=== PATIENT | female | born 1995 | race American Indian/Alaskan Native ===

== ENCOUNTER 2017-04-25 22:22 | Emergency (ER) | payer SELFPAY ==
[2017-04-25] MEDS ORDERED: Levalbuterol HCl 1.25 MG/0.5 ML Neb NEB ONE (22:42)
[2017-04-25] MEDS ORDERED: methylPREDNISolone Sodium Succinate 125 MG/2 ML SDV IM ONE (23:05)
--- NOTE | 2017-04-25 23:41 | EDM.PDOC ---
ED HPI GENERAL MEDICAL PROBLEM - General Chief Complaint: Respiratory Problem Stated Complaint: Asthma exacerbation Time Seen by Provider: 04/25/17 22:23 Source of Information: Reports: Patient, Family, RN, RN Notes Reviewed History Limitations: Reports: No Limitations - History of Present Illness INITIAL COMMENTS - FREE TEXT/NARRATIVE: Patient presents the emergency room at [facility] complaining of shortness of breath and audible wheezing. The patient states she has a long-standing history of asthma. The patient states she ran out of her nebulizer for her asthma. She is not sure the last time she has had a treatment. The patient has not had any formal workup for her asthma. The patient does not have a primary care provider. The patient smokes cigarettes on a daily basis. The patient denies any focal neurological deficit. Patient denies any nausea vomiting or diarrhea. The patient does not have a cough. The patient states it hurts to take in a deep breath. The patient feels as if she cannot take in a deep breath. Otherwise no other complaints. Onset: Today - Related Data Allergies Allergy/AdvReac Type Severity Reaction Status Date / Time No Known Allergies Allergy Verified 04/25/17 22:33 Home Meds: Home Meds Albuterol Sulfate 2.5 mg IH ASDIRECTED 04/25/17 [History] Albuterol [IJP: Albuterol] 1 ampule INH Q4HR PRN #1 box 04/25/17 [Rx] Past Medical History Respiratory History: Reports: Asthma - Past Surgical History HEENT Surgical History: Reports: Other (See Below) Other HEENT Surgeries/Procedures: dental surgery Social & Family History - Tobacco Use Smoking Status *Q: Current Every Day Smoker Years of Tobacco use: 10 Packs/Tins Daily: 0.7 ED ROS GENERAL - Review of Systems Review Of Systems: See Below Constitutional: Denies: Fever, Chills, Weakness Respiratory: Reports: Shortness of Breath, Wheezing. Denies: Cough Cardiovascular: Denies: Chest Pain, Palpitations GI/Abdominal: Denies: Abdominal Pain, Nausea, Vomiting Skin: Reports: No Symptoms Neurological: Reports: No Symptoms ED EXAM, GENERAL - Physical Exam Exam: See Below Exam Limited By: No Limitations General Appearance: Alert, No Apparent Distress Respiratory/Chest: Decreased Breath Sounds, Wheezing Cardiovascular: Normal Peripheral Pulses, Regular Rate, Rhythm Peripheral Pulses: 2+: Radial (L), Radial (R) GI/Abdominal: Normal Bowel Sounds, Soft, Non-Tender Neurological: Alert, Oriented Skin Exam: Warm, Dry, Intact, Normal Color Course - Vital Signs Last Recorded V/S: Last Vital Signs Temp 37.2 C 04/25/17 22:31 Pulse 105 H 04/25/17 22:31 Resp 18 04/25/17 22:31 BP 156/79 H 04/25/17 22:31 Pulse Ox 98 04/25/17 22:31 - Orders/Labs/Meds Orders: Active Orders 24 hr Category Date Time Status RT Aerosol Therapy [RC] ASDIRECTED Care 04/25/17 22:42 Active Chest 2V [CR] Stat Exams 04/25/17 22:39 Taken Labs: Laboratory Tests 04/25/17 04/25/17 Range/Units 22:47 22:47 Urine Color Yellow (YELLOW) Urine Appearance Slightly cloudy H (CLEAR) Urine pH 7.5 (5.0-8.0) Ur Specific Wendell 1.020 Urine Protein Negative (NEGATIVE) mg/dL Urine Glucose (UA) Negative (NEGATIVE) mg/dL Urine Ketones Negative (NEGATIVE) mg/dL Urine Occult Blood Negative (NEGATIVE) Urine Nitrite Negative (NEGATIVE) Urine Bilirubin Negative (NEGATIVE) Urine Urobilinogen 0.2 (0.2) EU/dL Ur Leukocyte Esterase Negative (NEGATIVE) Urine RBC Not seen (NOT SEEN) /HPF Urine WBC Not seen (NOT SEEN) /HPF Ur Squamous Epith Cells Few H (NEGATIVE) /HPF Urine Bacteria Not seen (NEGATIVE) /HPF Urine Mucus Not seen (NEGATIVE) /LPF Urine HCG, Qual Negative (NEGATIVE) Meds: Medications Discontinued Medications Generic Name Dose Route Start Last Admin Trade Name Freq PRN Reason Stop Dose Admin Levalbuterol HCl 1.25 mg 04/25/17 22:42 04/25/17 22:49 Xopenex NEB 04/25/17 22:43 1.25 mg ONETIME ONE Administration Methylprednisolone Sodium Succinate 125 mg 04/25/17 23:05 04/25/17 23:19 Solu-Medrol IM 04/25/17 23:06 125 mg ONETIME ONE Administration Departure - Departure Time of Disposition: 23:39 Disposition: Home, Self-Care 01 Condition: Good Clinical Impression: Asthma exacerbation Qualifiers: Asthma severity: moderate Asthma persistence: persistent Qualified Code(s): J45.41 - Moderate persistent asthma with (acute) exacerbation - Discharge Information Prescriptions: Albuterol [IJP: Albuterol] 1 ampule INH Q4HR PRN #1 box PRN Reason: Wheezing Instructions: Asthma, Adult Referrals: PCP,None [Primary Care Provider] - Additional Instructions: 1. Stay well hydrated and rest 2. Use nebs at home every 4 hours as needed 3. Set up an appointment with a Primary Care Provider to further evaluate your asthma 4. STOP SMOKING 5. Call with any questions/concerns, we care about your health!! - Problem List Review Problem List Initiated/Reviewed/Updated: Yes - My Orders Last 24 Hours: My Active Orders 04/25/17 22:39 Chest 2V [CR] Stat 04/25/17 22:42 RT Aerosol Therapy [RC] ASDIRECTED - Assessment/Plan Last 24 Hours: My Active Orders 04/25/17 22:39 Chest 2V [CR] Stat 04/25/17 22:42 RT Aerosol Therapy [RC] ASDIRECTED Assessment:: Asthma exacerbation Plan: Patient felt much better after neb and Solumedrol. Discussed with patient she needs to quit smoking. Will give the patient one script for Albuterol nebs. Encourage patient to find a PCP to further assess her asthma problems. No abx warranted. Patient agrees with POC and wishes to proceed.
== END 2017-04-25 23:53 | disposition home or self-care (01) ==
LOC: VM.ED 22:22
DX: J45.41 Moderate persistent asthma with (acute) exacerbation (principal); F17.210 Nicotine dependence, cigarettes, uncomplicated
CPT/HCPCS: 71046; 81001; 81025; 94640; 96372; 99283; J2930; 99285

== ENCOUNTER 2017-05-10 17:58 | Emergency (ER) | payer MEDICAID ==
[2017-05-10] MEDS ORDERED: Sodium Chloride 0.9% 10 ML Syringe FLUSH PRN (18:24)
[2017-05-10] MEDS ORDERED: Albuterol/Ipratropium 3.0-0.5 MG/3 ML Neb Soln NEB ONE (18:27)
[2017-05-10] MEDS ORDERED: methylPREDNISolone Sodium Succinate 125 MG/2 ML SDV IV ONE (18:27)
[2017-05-10] MEDS ORDERED: Lactated Ringers 1,000 ML IV SCH (18:30)
--- NOTE | 2017-05-10 18:51 | EDM.PDOC ---
ED HPI GENERAL MEDICAL PROBLEM - General Chief Complaint: Respiratory Problem Stated Complaint: respiratory Time Seen by Provider: 05/10/17 18:02 Source of Information: Reports: Patient History Limitations: Reports: No Limitations - History of Present Illness INITIAL COMMENTS - FREE TEXT/NARRATIVE: Pt. presents to ER with wheezing, chest congestion, and increased work of breathing. Pt. was seen in ER 04/25/17 for the same by Orestes Hanson. Pt. was found to have an asthma exacerbation, was given solu medrol and her albuterol nebs were refilled. She denies any fever or chills. No weakness. States has a cough productive of clear sputum. Pt. is non-compliant and doesn't take any asthma control medication, relying in albuterol and oral/parenteral steroids when she has an exacerbation. She states that she hasn't been worked up for asthma as an adult, and is not currently on any LABA or ICS treatment. Pt. states that she is taking an albuterol neb every 2 hours around the clock due to dyspnea/increased work of breathing. Pt. continues to smoke and states that she is allergic to cigarette smoke as well. Location: Reports: Chest Severity: Moderate Improves with: Reports: Rest Worsens with: Reports: Movement Associated Symptoms: Reports: Cough, cough w sputum, Shortness of Breath Treatments BRIM MOLDER: Reports: Breathing Treatments - Related Data Allergies Allergy/AdvReac Type Severity Reaction Status Date / Time No Known Allergies Allergy Verified 04/25/17 22:33 Home Meds: Home Meds Albuterol Sulfate 2.5 mg IH ASDIRECTED 04/25/17 [History] Albuterol [IJP: Albuterol] 1 ampule INH Q4HR PRN #1 box 04/25/17 [Rx] Past Medical History Respiratory History: Reports: Asthma - Past Surgical History HEENT Surgical History: Reports: Other (See Below) Other HEENT Surgeries/Procedures: dental surgery Social & Family History - Tobacco Use Smoking Status *Q: Current Every Day Smoker Years of Tobacco use: 7 Packs/Tins Daily: 0.5 ED ROS GENERAL - Review of Systems Review Of Systems: See Below Constitutional: Reports: No Symptoms HEENT: Reports: No Symptoms Respiratory: Reports: Shortness of Breath, Wheezing, Cough, Sputum Cardiovascular: Reports: No Symptoms. Denies: Chest Pain Endocrine: Reports: No Symptoms GI/Abdominal: Reports: No Symptoms : Reports: No Symptoms Musculoskeletal: Reports: No Symptoms Skin: Reports: No Symptoms Neurological: Reports: No Symptoms Psychiatric: Reports: No Symptoms Hematologic/Lymphatic: Reports: No Symptoms Immunologic: Reports: Environmental Allergy (cigarette smoke) ED EXAM, GENERAL - Physical Exam Exam: See Below Exam Limited By: No Limitations General Appearance: Alert, WD/WN, No Apparent Distress Eye Exam: Bilateral Eye: EOMI, Normal Fundi, Normal Inspection, PERRL Ears: Normal External Exam, Normal Canal, Hearing Grossly Normal, Normal TMs Ear Exam: Bilateral Ear: Auricle Normal, Canal Normal, TM normal Nose: Normal Inspection, Normal Mucosa, No Blood Throat/Mouth: Normal Inspection, Normal Lips, Normal Teeth, Normal Gums, Normal Oropharynx, Normal Voice, No Airway Compromise Head: Atraumatic, Normocephalic Neck: Normal Inspection, Supple, Non-Tender, Full Range of Motion Respiratory/Chest: Respiratory Distress (mild increased work of breathing), Decreased Breath Sounds, Rhonchi, Wheezing, Prolonged Expiration. No: No Respiratory Distress, Lungs Clear, Normal Breath Sounds, No Accessory Muscle Use , Chest Non-Tender Cardiovascular: Normal Peripheral Pulses, Regular Rate, Rhythm, No Edema, No Gallop, No JVD, No Murmur, No Rub Peripheral Pulses: 4+: Brachial (L), Brachial (R) GI/Abdominal: Normal Bowel Sounds, Soft, Non-Tender, No Organomegaly, No Distention, No Abnormal Bruit, No Mass (Female) Exam: Deferred Rectal (Female) Exam: Deferred Back Exam: Normal Inspection, Full Range of Motion, NT Extremities: Normal Inspection, Normal Range of Motion, Non-Tender, Normal Capillary Refill, No Pedal Edema Neurological: Alert, Oriented, CN II-XII Intact, Normal Cognition, Normal Gait, Normal Reflexes, No Motor/Sensory Deficits Psychiatric: Normal Affect, Normal Mood Skin Exam: Warm, Dry, Intact, Normal Color, No Rash Lymphatic: No Adenopathy Course - Vital Signs Last Recorded V/S: Last Vital Signs Temp 36.8 C 05/10/17 18:02 Pulse 102 H 05/10/17 18:02 Resp 20 05/10/17 18:02 BP 147/87 H 05/10/17 18:02 Pulse Ox 96 05/10/17 18:02 - Orders/Labs/Meds Orders: Active Orders 24 hr Category Date Time Status RT Aerosol Therapy [RC] ASDIRECTED Care 05/10/17 18:27 Active RT Aerosol Therapy [RC] ASDIRECTED Care 05/10/17 18:58 Active RT Aerosol Therapy [RC] ASDIRECTED Care 05/10/17 19:23 Active Chest 2V [CR] Stat Exams 05/10/17 18:27 Taken Peripheral IV Insertion Adult [OM.PC] Routine Oth 05/10/17 18:26 Ordered Labs: Laboratory Tests 05/10/17 05/10/17 05/10/17 Range/Units 18:54 18:54 18:54 WBC 10.4 H (4.0-10.0) x10^3/uL RBC 5.00 (4.00-5.50) x10^6/uL Hgb 12.8 (12.0-16.0) g/dL Hct 40.0 (33.0-47.0) % MCV 80.0 (78.0-93.0) fL MCH 25.6 L (26.0-32.0) pg MCHC 32.0 (32.0-36.0) g/dL RDW Coeff of Anaya 16.3 H (10.0-15.0) % Plt Count 452 H (130-400) x10^3/uL Neut % (Auto) 65.1 (50.0-80.0) % Lymph % (Auto) 19.9 L (25.0-50.0) % Faulk % (Auto) 5.2 (2.0-11.0) % Eos % (Auto) 9.4 H (0.0-4.0) % Baso % (Auto) 0.4 (0.2-1.2) % Sodium 140 (136-145) mmol/L Potassium 3.6 (3.5-5.1) mmol/L Chloride 105 (98-107) mmol/L Carbon Dioxide 26 (21-32) mmol/L BUN 8 (7-18) mg/dL Creatinine 0.9 (0.55-1.02) mg/dL Est Cr Clr Drug Dosing 94.12 mL/min Estimated GFR (MDRD) > 60 Glucose 98 (74-106) mg/dL Lactic Acid 1.7 (0.4-2.0) mmol/L Calcium 9.4 (8.5-10.1) mg/dL Corrected Calcium 9.56 (8.5-10.1) mg/dL Total Bilirubin 0.5 (0.2-1.0) mg/dL AST 25 (15-37) U/L ALT 46 (14-59) U/L Alkaline Phosphatase 99 (46-116) U/L C-Reactive Protein 3.3 H (<=0.9) mg/dL Total Protein 8.2 (6.4-8.2) g/dL Albumin 3.8 (3.4-5.0) g/dL Globulin 4.4 Albumin/Globulin Ratio 0.86 Meds: Medications Discontinued Medications Generic Name Dose Route Start Last Admin Trade Name Jose Carlosq PRN Reason Stop Dose Admin Albuterol 1 packet 05/10/17 20:27 05/10/17 20:33 Take Home: Albuterol 0.083%, 4 Neb Pack [facility] 05/10/17 20:28 1 packet ONETIME ONE Administration Albuterol/Ipratropium 3 ml 05/10/17 18:27 05/10/17 18:33 Duoneb 3.0-0.5 Mg/3 Ml NEB 05/10/17 18:28 3 ml ONETIME ONE Administration Azithromycin 500 mg 05/10/17 19:04 05/10/17 19:23 Zithromax PO 05/10/17 19:05 500 mg ONETIME ONE Administration Ceftriaxone Sodium 2 gm 05/10/17 19:01 05/10/17 19:16 Rocephin IVPUSH 05/10/17 19:02 2 gm ONETIME ONE Administration Lactated Ringer's 1,000 mls @ 500 mls/hr 05/10/17 18:30 05/10/17 18:57 Ringers, Lactated IV 500 mls/hr ASDIRECTED REYNOLD Administration Levalbuterol HCl 1.25 mg 05/10/17 18:58 05/10/17 19:02 Xopenex NEB 05/10/17 18:59 1.25 mg ONETIME ONE Administration Levalbuterol HCl 1.25 mg 05/10/17 19:23 05/10/17 19:25 Xopenex NEB 05/10/17 19:24 1.25 mg ONETIME ONE Administration Methylprednisolone Sodium Succinate 125 mg 05/10/17 18:27 05/10/17 18:54 Solu-Medrol IV 05/10/17 18:28 125 mg ONETIME ONE Administration Sodium Chloride 10 ml 05/10/17 18:24 05/10/17 18:54 Saline Flush FLUSH 10 ml ASDIRECTED PRN Administration Keep Vein Open - Radiology Interpretation Free Text/Narrative:: increased opacification of the R middle lobe - Re-Assessments/Exams Free Text/Narrative Re-Assessment/Exam: 05/10/17 21:24 Pt. was given a duoneb breathing treatment. Initial peak flow was 300, which was 66% of predicted. Was given a 500ml. bolus of LR. Pt. was given solu medrol 125mg IV. After initial breathing treatment, peak flow was 350, which was 77% of predicted. Pt. was given a xopenex 1.25mg neb. Peak flow measured at 375 which is approx. 83% of predicted. Pt. was given a second xopenex treatment and peak flow was measured at 412, which was 91% of predicted. Lung sounds improved after each breathing treatment; wheezing decreased and air entry improved. After obtaining chest x-ray, pt. was given rocephin 1 gm IV and azithromycin 500mg PO. She remained stable in my care in ER. Departure - Departure Time of Disposition: 20:42 Disposition: Home, Self-Care 01 Condition: Good Clinical Impression: Acute asthma, Community acquired pneumonia - Discharge Information Instructions: Asthma, Adult, Azithromycin tablets, Triamcinolone oral inhaler, Prednisone tablets, Albuterol inhalation solution, Community-Acquired Pneumonia , Adult, [id number] Referrals: PCP,None [Primary Care Provider] - Forms: ED Department Discharge Additional Instructions: Albuterol neb 2.5mg every 6 hours as needed for breathing trouble Prednisone 40mg once daily for 5 days Azithromycin 250mg once daily until gone Azmacort inhaler 1 puff twice daily. Keep using this, even when you are feeling better. You have severe asthma and need to be on medication every day for it. Taking albuterol like you have been doing is damaging your lungs. This is made worse by the fact that you smoke. STOP SMOKING Contact [facility] [phone] [facility] [phone] Either one of these clinics is accepting new patients. You will need to have these medications refilled at some point, and you need to have a follow-up appointment in the next 10-14 days to see how you are doing. Return to ER if you have worsening breathing trouble, lightheadedness, confusion , or racing heart. Call the ER: if you have any questions. It is very important that you take your medications as prescribed. - My Orders Last 24 Hours: My Active Orders 05/10/17 18:26 Peripheral IV Insertion Adult [OM.PC] Routine 05/10/17 18:27 RT Aerosol Therapy [RC] ASDIRECTED Chest 2V [CR] Stat 05/10/17 18:58 RT Aerosol Therapy [RC] ASDIRECTED 05/10/17 19:23 RT Aerosol Therapy [RC] ASDIRECTED - Assessment/Plan Last 24 Hours: My Active Orders 05/10/17 18:26 Peripheral IV Insertion Adult [OM.PC] Routine 05/10/17 18:27 RT Aerosol Therapy [RC] ASDIRECTED Chest 2V [CR] Stat 05/10/17 18:58 RT Aerosol Therapy [RC] ASDIRECTED 05/10/17 19:23 RT Aerosol Therapy [RC] ASDIRECTED Assessment:: Asthma exacerbation Community acquired pneumonia Plan: Discussed findings at length with pt., particularly the importance of stopping smoking. Pt. was given a refill of her albuterol 2.5mg nebs. She was started on prednisone 40mg once daily for 4 days for acute asthma exacerbation. She was also started on triamcinolone inhaler 1 puff twice daily. No refills were given. She was also given a script for azithromycin 250mg by mouth daily until gone. Advised to return to ER if she developed increased work of breathing, weakness, increased dyspnea, lightheadedness, or racing heart. The pt. was given instructions to establish care and follow-up at one of the clinics within the next 7-10 days. She must stop smoking, as this is negatively influencing her asthma significantly.
[2017-05-10] MEDS ORDERED: Levalbuterol HCl 1.25 MG/0.5 ML Neb NEB ONE ×2 (18:58→19:23)
[2017-05-10] MEDS ORDERED: cefTRIAXone 2 GM Vial IVPUSH ONE (19:01)
[2017-05-10] MEDS ORDERED: Azithromycin 250 MG Tab PO ONE (19:04)
[2017-05-10 19:22] LABS: CHLORIDE,CL 105 mmol/L (98-107); SODIUM,NA 140 mmol/L (136-145)
[2017-05-10] MEDS ORDERED: Take Home: Albuterol 0.083% 2.5 MG/3 ML Neb Soln, 4 Neb Pack NEB ONE (20:27)
== END 2017-05-10 20:42 | disposition home or self-care (01) ==
LOC: VM.ED 17:58
DX: J45.901 Unspecified asthma with (acute) exacerbation (principal); J18.9 Pneumonia, unspecified organism; F17.210 Nicotine dependence, cigarettes, uncomplicated
CPT/HCPCS: 36415; 71046; 80053; 83605; 85025; 86140; 87804; 94640; 96361; 96374; 96375; 99285; A9270-GY; J0696; J2930; J7050; J7120

== ENCOUNTER 2017-06-13 18:45 | Emergency (ER) | payer MEDICAID ==
[2017-06-13] MEDS ORDERED: Albuterol/Ipratropium 3.0-0.5 MG/3 ML Neb Soln NEB ONE (19:13)
[2017-06-13] MEDS ORDERED: Albuterol 0.083% 2.5 MG/3 ML Neb Soln NEB ONE (19:37)
[2017-06-13] MEDS ORDERED: methylPREDNISolone Sodium Succinate 125 MG/2 ML SDV IM ONE (19:38)
[2017-06-13] MEDS ORDERED: Take Home: Doxycycline 100 MG Tab, 4 Tab Pack PO ONE (19:43)
[2017-06-13] MEDS ORDERED: Take Home: predniSONE 20 MG, 2 Tab Pack PO ONE (19:43)
--- NOTE | 2017-06-13 21:41 | EDM.PDOC ---
ED HPI GENERAL MEDICAL PROBLEM - General Chief Complaint: Respiratory Problem Time Seen by Provider: 06/13/17 18:50 Source of Information: Reports: Patient History Limitations: Reports: No Limitations - History of Present Illness INITIAL COMMENTS - FREE TEXT/NARRATIVE: Pt. presented to ER with complaints of cough, wheezing, and dyspnea. Pt. was treated for an asthma exacerbation on 06/08/17 at [facility]. Pt. was given a nebulizer and steroids in the ER, but failded to fill her script for prednisone due to cost. She states that she is not getting any better. She states that she is occasionally chills. States that her cough is productive of yellowish sputum. She denies any fever or chills. She denies any weakness. Onset: Today Location: Reports: Chest Quality: Reports: Burning Worsens with: Denies: Immobilization - Related Data Allergies Allergy/AdvReac Type Severity Reaction Status Date / Time No Known Allergies Allergy Verified 06/13/17 18:58 Home Meds: Home Meds Albuterol Sulfate 2.5 mg IH ASDIRECTED 04/25/17 [History] Past Medical History Respiratory History: Reports: Asthma - Past Surgical History HEENT Surgical History: Reports: Other (See Below) Other HEENT Surgeries/Procedures: dental surgery Social & Family History - Tobacco Use Smoking Status *Q: Current Every Day Smoker Years of Tobacco use: 8 Packs/Tins Daily: 0.1 - Recreational Drug Use Recreational Drug Use: No ED ROS GENERAL - Review of Systems Review Of Systems: See Below Constitutional: Reports: No Symptoms HEENT: Reports: No Symptoms Respiratory: Reports: Shortness of Breath, Wheezing Cardiovascular: Reports: Dyspnea on Exertion Endocrine: Reports: No Symptoms Musculoskeletal: Reports: No Symptoms Skin: Reports: No Symptoms Neurological: Reports: No Symptoms Psychiatric: Reports: No Symptoms Hematologic/Lymphatic: Reports: No Symptoms Immunologic: Reports: No Symptoms ED EXAM, GENERAL - Physical Exam Exam: See Below Exam Limited By: No Limitations General Appearance: Alert, WD/WN, No Apparent Distress Ears: Normal External Exam Ear Exam: Bilateral Ear: Auricle Normal, Canal Normal, TM normal Nose: Normal Inspection, Normal Mucosa, No Blood Throat/Mouth: Normal Inspection, Normal Lips, Normal Teeth, Normal Gums, Normal Oropharynx, Normal Voice, No Airway Compromise Head: Atraumatic, Normocephalic Neck: Normal Inspection, Supple Respiratory/Chest: Decreased Breath Sounds, Wheezing Cardiovascular: Normal Peripheral Pulses, Regular Rate, Rhythm, No Edema, No Gallop, No JVD, No Murmur, No Rub Peripheral Pulses: 3+: Radial (L), Radial (R) GI/Abdominal: Normal Bowel Sounds, Soft, Non-Tender, No Organomegaly, No Distention, No Abnormal Bruit, No Mass (Female) Exam: Deferred Rectal (Female) Exam: Deferred Back Exam: Normal Inspection, Full Range of Motion, NT Extremities: Normal Inspection, Normal Range of Motion, Non-Tender, Normal Capillary Refill, No Pedal Edema Neurological: Alert, Oriented, CN II-XII Intact, Normal Cognition, Normal Gait, Normal Reflexes, No Motor/Sensory Deficits Psychiatric: Normal Affect, Normal Mood. No: Tearful Skin Exam: Warm, Dry Course - Vital Signs Last Recorded V/S: Last Vital Signs Temp 36.9 C 06/13/17 18:50 Pulse 106 H 06/13/17 18:50 Resp 18 06/13/17 18:50 BP 147/93 H 06/13/17 18:50 Pulse Ox 95 06/13/17 18:50 - Orders/Labs/Meds Orders: Active Orders 24 hr Category Date Time Status RT Aerosol Therapy [RC] ASDIRECTED Care 06/13/17 19:13 Active RT Aerosol Therapy [RC] ASDIRECTED Care 06/13/17 19:37 Inactive Chest 2V [CR] Stat Exams 06/13/17 19:05 Taken Meds: Medications Discontinued Medications Generic Name Dose Route Start Last Admin Trade Name Anne Marie PRN Reason Stop Dose Admin Albuterol 2.5 mg 06/13/17 19:37 Proventil Neb Soln NEB 06/13/17 19:38 ONETIME ONE Albuterol/Ipratropium 3 ml 06/13/17 19:13 06/13/17 19:22 Duoneb 3.0-0.5 Mg/3 Ml NEB 06/13/17 19:14 3 ml ONETIME ONE Administration Doxycycline Monohydrate 1 packet 06/13/17 19:43 06/13/17 19:49 Take Home: Doxycycline 100 Mg, 4 Tab Pack PO 06/13/17 19:44 1 packet ONETIME ONE Administration Methylprednisolone Sodium Succinate 125 mg 06/13/17 19:38 06/13/17 19:48 Solu-Medrol IM 06/13/17 19:39 125 mg ONETIME ONE Administration Prednisone 1 packet 06/13/17 19:43 06/13/17 19:49 Take Home: Prednisone 20 Mg, 2 Tab Pack PO 06/13/17 19:44 1 packet ONETIME ONE Administration - Radiology Interpretation Free Text/Narrative:: No obvious infiltrate noted. - Re-Assessments/Exams Free Text/Narrative Re-Assessment/Exam: 06/13/17 21:49 Pt. was given a duoneb breathing treatment. Pre and post peak flows were 300 and 400, or 77% and 94% of predicted. She was given solu medrol 125mg once daily Departure - Departure Time of Disposition: 19:59 Disposition: Home, Self-Care 01 Condition: Good Clinical Impression: Bronchitis Asthma exacerbation Qualifiers: Asthma severity: moderate Asthma persistence: persistent Qualified Code(s): J45.41 - Moderate persistent asthma with (acute) exacerbation - Discharge Information Instructions: Asthma, Adult, Acute Bronchitis, Adult, [id number] Referrals: PCP,None [Primary Care Provider] - Forms: ED Department Discharge Additional Instructions: Prednisone as prescribed from your asthma doxycycline 100mg twice daily for the bronchitis Establish care and follow-up in clinic in 10-14 days, sooner if not improving. Use your albuterol nebs every 4-6 hours for trouble breathing. - My Orders Last 24 Hours: My Active Orders 06/13/17 19:05 Chest 2V [CR] Stat 06/13/17 19:13 RT Aerosol Therapy [RC] ASDIRECTED 06/13/17 19:37 RT Aerosol Therapy [RC] ASDIRECTED - Assessment/Plan Last 24 Hours: My Active Orders 06/13/17 19:05 Chest 2V [CR] Stat 06/13/17 19:13 RT Aerosol Therapy [RC] ASDIRECTED 06/13/17 19:37 RT Aerosol Therapy [RC] ASDIRECTED
== END 2017-06-13 19:59 | disposition home or self-care (01) ==
LOC: VM.ED 18:45
DX: J45.41 Moderate persistent asthma with (acute) exacerbation (principal); F17.210 Nicotine dependence, cigarettes, uncomplicated
CPT/HCPCS: 71046; 96372; 99285; A9270-GY; J2930